=== PATIENT | female | born 1960 | race Two or more races ===

== ENCOUNTER 2021-05-08 03:02 | Emergency (ER) | payer BC ==
[~2021-05-08] VITALS: Ht 152.4 cm; Wt 93.4 kg
[2021-05-08] MEDS ORDERED: PYRIDIUM100 M1 PO (03:29)
[2021-05-08] MEDS ORDERED: CEPHALEXIN500 MG PO (05:35)
== END 2021-05-08 05:41 | disposition home or self-care (01) ==
LOC: ER 03:02
DX: N30.80 Other cystitis without hematuria (principal)